=== PATIENT | male | born 1985 | race Hispanic/Latino ===

== ENCOUNTER 2024-02-04 20:04 | Emergency (ER) | payer SELFPAY ==
[~2024-02-04] VITALS: Ht 162.6 cm; Wt 86.2 kg
[2024-02-04] MEDS: TETANUS/DIPHTHERIA TOX ADULT 0.5 ML SYR IM ONE (21:02)
[2024-02-04 23:04] VITALS: PULSE 74; RESP 16; TEMP 98.4; O2SAT 100
[2024-02-04] MEDS ORDERED: CEPHALEXIN500 MG PO (23:04)
[2024-02-04] MEDS ORDERED: IBUPROFEN800 MG PO (23:04)
== END 2024-02-04 23:06 | disposition home or self-care (01) ==
LOC: ER 20:34
DX: S91.135A Puncture wound without foreign body of left lesser toe(s) without damage to nail, initial encounter (principal); W45.0XXA Nail entering through skin, initial encounter; Y93.01 Activity, walking, marching and hiking; Y92.89 Other specified places as the place of occurrence of the external cause
CPT/HCPCS: 90714; 99283